=== PATIENT | female | born 1985 | race Caucasian/White ===

== ENCOUNTER 2020-05-24 05:25 | Inpatient (IN) | payer OTHER, BC ==
[2020-05-24] MEDS ORDERED: Nalbuphine 10 MG/1 ML Vial IVPUSH PRN (07:13)
[2020-05-24] MEDS ORDERED: Sodium Chloride 0.9% 10 ML Syringe FLUSH PRN (07:13)
[2020-05-24] MEDS ORDERED: Misoprostol 200 MCG Tab PO PRN (07:13)
[2020-05-24] MEDS ORDERED: Lidocaine 1% 50 ML MDV INJECT PRN (07:13)
[2020-05-24] MEDS ORDERED: Carboprost Tromethamine 250 MCG/1 ML Amp IM PRN (07:13)
[2020-05-24] MEDS ORDERED: Sodium Chloride 0.9% 2.5 ML Syringe FLUSH PRN (07:13)
[2020-05-24] MEDS ORDERED: Sodium Chloride 0.9% 10 ML SDV IV PRN (07:13)
[2020-05-24] MEDS ORDERED: Ondansetron 4 MG/2 ML SDV IVPUSH PRN (07:13)
[2020-05-24] MEDS ORDERED: Butorphanol 1 MG/ML SDV IVPUSH PRN (07:13)
[2020-05-24] MEDS ORDERED: Tranexamic Acid 1,000 MG in Sodium Chloride 0.9% 100 ML IV PRN ×2 (07:13→20:33)
[2020-05-24] MEDS ORDERED: Methylergonovine 0.2 MG/1 ML Amp IM PRN ×2 (07:13→20:33)
[2020-05-24] MEDS ORDERED: Water For Irrigation,Sterile 1,000 ML Container IRR PRN (07:13)
[2020-05-24] MEDS ORDERED: Oxytocin/0.9 % Sodium Chloride 30 UNIT/500 ML BAG IV SCH ×2 (07:15→15:00)
[2020-05-24] MEDS: Lactated Ringers 1,000 ML IV SCH ×3 (09:45→15:50)
[2020-05-24] MEDS ORDERED: fentaNYL 100 MCG/2 ML SDV ONE ×2 (10:39→17:41)
[2020-05-24] MEDS ORDERED: Ropivacaine HCl/PF 100 ML ONE ×2 (10:39→17:41)
--- NOTE | 2020-05-24 11:19 | PCM.PREANE ---
Preanesthetic Assessment - Procedure Proposed Procedure: labor epidural - Anesthesia/Transfusion/Family Hx Anesthesia History: No Prior Anesthesia Family History of Anesthesia Reaction: No Transfusion History: No Prior Transfusion(s) - Review of Systems General: No Symptoms Pulmonary: No Symptoms Cardiovascular: No Symptoms Gastrointestinal: No Symptoms Neurological: No Symptoms Other: Reports: None - Physical Assessment NPO Status Date: 05/24/20 NPO Status Time: 10:30 (water) Height: 5 ft 3 in Weight: 97.522 kg ASA Class: 2 Mental Status: Alert & Oriented x3 Airway Class: Mallampati = 2 Dentition: Reports: Normal Dentition Thyro-Mental Finger Breadths: 2 ROM/Head Extension: Full Lungs: Clear to Auscultation, Normal Respiratory Effort Cardiovascular: Regular Rate, Regular Rhythm - Lab Values: Laboratory Last Values WBC 11.00 K/uL (4.0-11.0) 05/24/20 08:07 RBC 3.95 M/uL (4.30-5.90) L 05/24/20 08:07 Hgb 12.7 g/dL (12.0-16.0) 05/24/20 08:07 Hct 38.1 % (36.0-46.0) 05/24/20 08:07 MCV 96.5 fL (80.0-98.0) 05/24/20 08:07 MCH 32.2 pg (27.0-32.0) H 05/24/20 08:07 MCHC 33.3 g/dL (31.0-37.0) 05/24/20 08:07 RDW Std Deviation 48.9 fl (28.0-62.0) 05/24/20 08:07 RDW Coeff of Silke 14 % (11.0-15.0) 05/24/20 08:07 Plt Count 144 K/uL (150-400) L 05/24/20 08:07 MPV 11.80 fL (7.40-12.00) 05/24/20 08:07 Nucleated RBC % 0.0 /100WBC 05/24/20 08:07 Nucleated RBCs # 0 K/uL 05/24/20 08:07 Membrane Rupture POSITIVE 05/24/20 05:44 COVID-19 (SIVA) NEGATIVE (NEGATIVE) 05/24/20 08:24 Blood Type O POSITIVE 05/24/20 08:07 Antibody Screen NEGATIVE 05/24/20 08:07 - Allergies Allergies/Adverse Reactions: Allergies Allergy/AdvReac Type Severity Reaction Status Date / Time No Known Allergies Allergy Verified 05/24/20 05:33 - Acknowledgements Anesthesia Type Planned: Epidural Pt an Appropriate Candidate for the Planned Anesthesia: Yes Alternatives and Risks of Anesthesia Discussed w Pt/Guardian: Yes Pt/Guardian Understands and Agrees with Anesthesia Plan: Yes PreAnesthesia Questionnaire - Past Health History Medical/Surgical History: Denies Medical/Surgical History Gastrointestinal History: Reports: GERD : 4 Para: 2 Other OB/BYN History: 39 6/7 weeks in active labor Endocrine/Metabolic History: Reports: Obesity/BMI 30+ - SUBSTANCE USE Smoking Status *Q: Former Smoker Tobacco Use Within Last Twelve Months: Cigarettes Second Hand Smoke Exposure: Yes Recreational Drug Use History: No - CURRENT (IN HOUSE) MEDS Current Meds: Current Medications Butorphanol Tartrate (Stadol) 1 mg IVPUSH Q1H PRN PRN Reason: Pain Carboprost Tromethamine (Hemabate Ds) 250 mcg IM ASDIRECTED PRN PRN Reason: Post Hemorrhage Lactated Ringer's (Ringers, Lactated) 1,000 mls @ 150 mls/hr IV ASDIRECTED [facility] Last Admin: 05/24/20 10:20 Dose: 999 mls/hr Documented by: Oxytocin/Sodium Chloride (Oxytocin 30 Unit/500 Ml-Ns) 30 unit in 500 mls @ 999 mls/hr IV TITRATE [facility] Tranexamic Acid 1,000 mg/ (Sodium Chloride) 110 mls @ 660 mls/hr IV ONETIME PRN PRN Reason: Bleeding Lidocaine HCl (Xylocaine 1%) 50 ml INJECT ONETIME PRN PRN Reason: Laceration repair Methylergonovine Maleate (Methergine) 0.2 mg IM ASDIRECTED PRN PRN Reason: Post Hemorrhage Misoprostol (Cytotec) 200 mcg PO ONETIME PRN PRN Reason: Post Hemorrhage Nalbuphine HCl (Nubain) 10 mg IVPUSH Q1H PRN PRN Reason: Pain (severe 7-10) Ondansetron HCl (Zofran) 4 mg IVPUSH Q4H PRN PRN Reason: Nausea/Vomiting Sodium Chloride (Saline Flush) 10 ml FLUSH ASDIRECTED PRN PRN Reason: Keep Vein Open Sodium Chloride (Saline Flush) 2.5 ml FLUSH ASDIRECTED PRN PRN Reason: Keep Vein Open Sodium Chloride (Normal Saline) 10 ml IV ASDIRECTED PRN PRN Reason: IV Use Sterile Water (Sterile Water For Irrigation) 1,000 ml IRR ASDIRECTED PRN PRN Reason: delivery Discontinued Medications Fentanyl (Sublimaze) Confirm Administered Dose 200 mcg .ROUTE .STNifti-MED ONE Stop: 05/24/20 10:40 Ropivacaine (Naropin 0.2%) Confirm Administered Dose 100 mls @ as directed .ROUTE .STNifti-MED ONE Stop: 05/24/20 10:40
[2020-05-24] MEDS ORDERED: Bupivacaine 0.25% 10 ML SDV ONE (17:37)
--- NOTE | 2020-05-24 18:02 | PCM.SN.2 ---
- Free Text/Narrative Note: Anesthesia time: 3467-6219 Paged to dose up epidural. T11 level at time of assessment (1730), with HOB 30 degrees. Negative to aspiration, and 7ml of 0.25% PF Marcaine bolus given. Instructed to have HOB 10 degrees with IHSAN for 15 min. Epidural bag empty, and changed. Settings adjusted for 8ml hourly rate, 5ml Q10 min POLISHER BRASS, 34ml hourly lockout. 1757- re-assessed and T8 level achieved. Patient reports satisfactory pain control. VSS.
[2020-05-24] MEDS ORDERED: Benzocaine/Menthol 20%-0.5% Spray 78 GM Cannister TOP PRN (20:33)
[2020-05-24] MEDS ORDERED: Witch Hazel Medicated Pads 40/Jar TOP PRN (20:33)
[2020-05-24] MEDS ORDERED: Lanolin 100% Cream 7 GM Tube TOP PRN (20:33)
[2020-05-24] MEDS ORDERED: Docusate Sodium 100 MG Cap PO PRN (20:33)
[2020-05-24] MEDS ORDERED: Ibuprofen 400 MG Tab PO PRN (20:33)
[2020-05-24] MEDS ORDERED: Acetaminophen 500 MG Tab PO PRN (20:33)
[2020-05-24] MEDS ORDERED: Bisacodyl 10 MG Supp RECTAL PRN (20:33)
--- NOTE | 2020-05-24 20:52 | PCM.DEL ---
L & D Note - General Info Date of Service: 05/24/20 Mother's Due Date: 05/25/20 - Delivery Note Labor: Spontaneous, Augmented by Oxytocin Delivery Outcome: Livebirth Infant Delivery Method: Spontaneous Vaginal Delivery-Single Infant Delivery Mode: Spontaneous Presentation: Left Occiput Anterior (TAMMY) Nuchal Cord: Present Anesthesia Type: Epidural Anesthetic: Lidocaine (Xylocaine) 1% Plain Local Anesthetic Volume: 5cc Amniotic Fluid Description: Meconium Stained Episiotomy Type: None Laceration: 2nd Degree Suture type: Vicryl Suture size: 2-0 Placenta: Intact, Spontaneous Cord: 3 Vessels Estimated Blood Loss: 200 Resuscitation Needed: No [place]: Suctioned Provider: Eduar Powell Score 1 min: 8 Score 5 min: 9 Second Stage Interventions: Reports: Encouragement Given, Pushing Effectively Delivery Comments (Free Text/Narrative):: of a female infant weighing 9 lbs 6 ounces (4260 g) to a 39w6d GBS negative O+ Rubella non immune 34 year old female. She presented with spontaneous rupture of membranes and contractions. She received routine care prior to labor. The patient had thin meconium staining. FHT remained in the 130s with contractions every 2-4 minutes. An epidural was placed for pain management. Pitocin was then initiated. FHT then showed variable decelerations with moderate variability, accelerations and no decelerations. Positioning and oxygen were then attempted; Pitocin was stopped and the patient had improvement of variables. Pitocin was then restarted at 1445. The patient then was complete at 1830 and began pushing at 1915. A life female was born at 1950 and was stimulated and placed on the patient's chest. - General Info Date of Service: 05/24/20 - Patient Data Weight - Most Recent: 215 lb I&O - Last 24 Hours: Intake & Output 05/24/20 05/24/20 05/24/20 06:59 14:59 22:59 Intake Total 1000 1000 Output Total 450 Balance 1000 550 Lab Results Last 24 Hours: Laboratory Results - last 24 hr 05/24/20 05/24/20 05/24/20 Range/Units 05:44 08:07 08:07 WBC 11.00 (4.0-11.0) K/uL RBC 3.95 L (4.30-5.90) M/uL Hgb 12.7 (12.0-16.0) g/dL Hct 38.1 (36.0-46.0) % MCV 96.5 (80.0-98.0) fL MCH 32.2 H (27.0-32.0) pg MCHC 33.3 (31.0-37.0) g/dL RDW Std Deviation 48.9 (28.0-62.0) fl RDW Coeff of Silke 14 (11.0-15.0) % Plt Count 144 L (150-400) K/uL MPV 11.80 (7.40-12.00) fL Nucleated RBC % 0.0 /100WBC Nucleated RBCs # 0 K/uL Cord ABG pH (7.18-7.38) Cord ABG Base Excess (-10--2) Cord VBG pH (7.25-7.45) Cord VBG Base Excess (-10--2) Membrane Rupture POSITIVE COVID-19 (SIVA) (NEGATIVE) Blood Type O POSITIVE Antibody Screen NEGATIVE 05/24/20 05/24/20 Range/Units 08:24 19:58 WBC (4.0-11.0) K/uL RBC (4.30-5.90) M/uL Hgb (12.0-16.0) g/dL Hct (36.0-46.0) % MCV (80.0-98.0) fL MCH (27.0-32.0) pg MCHC (31.0-37.0) g/dL RDW Std Deviation (28.0-62.0) fl RDW Coeff of Silke (11.0-15.0) % Plt Count (150-400) K/uL MPV (7.40-12.00) fL Nucleated RBC % /100WBC Nucleated RBCs # K/uL Cord ABG pH 7.142 L (7.18-7.38) Cord ABG Base Excess -10 (-10--2) Cord VBG pH 7.285 (7.25-7.45) Cord VBG Base Excess -7 (-10--2) Membrane Rupture COVID-19 (SIVA) NEGATIVE (NEGATIVE) Blood Type Antibody Screen Med Orders - Current: Current Medications Acetaminophen (Tylenol Extra Strength) 500 mg PO Q4H PRN PRN Reason: Pain Acetaminophen (Tylenol Extra Strength) 1,000 mg PO Q4H PRN PRN Reason: Pain Benzocaine/Menthol (Dermoplast Pain Relief 20%-0.5% [place]) 78 gm TOP ASDIRECTED PRN PRN Reason: Perineal Comfort Measure Bisacodyl (Dulcolax) 10 mg RECTAL ONETIME PRN PRN Reason: Constipation Docusate Sodium (Colace) 100 mg PO BID PRN PRN Reason: Constipation Emollient Ointment (Lansinoh Hpa) 0 gm TOP ASDIRECTED PRN PRN Reason: Sore Nipples Tranexamic Acid 1,000 mg/ (Sodium Chloride) 110 mls @ 660 mls/hr IV ONETIME PRN PRN Reason: Bleeding Ibuprofen (Motrin) 400 mg PO Q4H PRN PRN Reason: Pain Ibuprofen (Motrin) 800 mg PO Q6H PRN PRN Reason: Pain Methylergonovine Maleate (Methergine) 0.2 mg IM ONETIME PRN PRN Reason: Excessive Vaginal Bleeding Witch Josseline (Tucks) 1 pad TOP ASDIRECTED PRN PRN Reason: comfort care Discontinued Medications Bupivacaine HCl (Sensorcaine-Mpf 0.25%) Confirm Administered Dose 10 ml .ROUTE .STK-MED ONE Stop: 05/24/20 17:38 Butorphanol Tartrate (Stadol) 1 mg IVPUSH Q1H PRN PRN Reason: Pain Carboprost Tromethamine (Hemabate Ds) 250 mcg IM ASDIRECTED PRN PRN Reason: Post Hemorrhage Fentanyl (Sublimaze) Confirm Administered Dose 200 mcg .ROUTE .STK-MED ONE Stop: 05/24/20 10:40 Fentanyl (Sublimaze) Confirm Administered Dose 200 mcg .ROUTE .STK-MED ONE Stop: 05/24/20 17:42 Lactated Ringer's (Ringers, Lactated) 1,000 mls @ 150 mls/hr IV ASDIRECTED [facility] Last Admin: 05/24/20 15:50 Dose: 999 mls/hr Documented by: Oxytocin/Sodium Chloride (Oxytocin 30 Unit/500 Ml-Ns) 30 unit in 500 mls @ 999 mls/hr IV TITRATE [facility] Tranexamic Acid 1,000 mg/ (Sodium Chloride) 110 mls @ 660 mls/hr IV ONETIME PRN PRN Reason: Bleeding Ropivacaine (Naropin 0.2%) Confirm Administered Dose 100 mls @ as directed .ROUTE .STK-MED ONE Stop: 05/24/20 10:40 Oxytocin/Sodium Chloride (Oxytocin 30 Unit/500 Ml-Ns) 30 unit in 500 mls @ 2 mls/hr IV TITRATE [facility]; Protocol Last Infusion: 05/24/20 17:58 Dose: 2 munits/min, 2 mls/hr Documented by: Ropivacaine (Naropin 0.2%) Confirm Administered Dose 100 mls @ as directed .ROUTE .[email or web address] ONE Stop: 05/24/20 17:42 Lidocaine HCl (Xylocaine 1%) 50 ml INJECT ONETIME PRN PRN Reason: Laceration repair Methylergonovine Maleate (Methergine) 0.2 mg IM ASDIRECTED PRN PRN Reason: Post Hemorrhage Misoprostol (Cytotec) 200 mcg PO ONETIME PRN PRN Reason: Post Hemorrhage Nalbuphine HCl (Nubain) 10 mg IVPUSH Q1H PRN PRN Reason: Pain (severe 7-10) Ondansetron HCl (Zofran) 4 mg IVPUSH Q4H PRN PRN Reason: Nausea/Vomiting Sodium Chloride (Saline Flush) 10 ml FLUSH ASDIRECTED PRN PRN Reason: Keep Vein Open Sodium Chloride (Saline Flush) 2.5 ml FLUSH ASDIRECTED PRN PRN Reason: Keep Vein Open Sodium Chloride (Normal Saline) 10 ml IV ASDIRECTED PRN PRN Reason: IV Use Sterile Water (Sterile Water For Irrigation) 1,000 ml IRR ASDIRECTED PRN PRN Reason: delivery - Problem List & Annotations (1) Normal vaginal delivery SNOMED Code(s): 57796192, 220193174 Code(s): O80 - ENCOUNTER FOR FULL-TERM UNCOMPLICATED DELIVERY Status: Acute Current Visit: Yes - Problem List Review Problem List Initiated/Reviewed/Updated: Yes - Assessment Assessment:: of a female infant weighing 4260g (9 lbs 6 ounces) to a 34 year old female at 39w6d with SROM on 05/24/20. APGARs 8/9 - Plan Plan:: 1. GBS negative 2. Rubella non immune - will need immunization prior to discharge 3. O+ - no Rhogam indicated 4. 5. Care per unit routine
--- NOTE | 2020-05-24 21:32 | OR ---
SURGEON: Latosha Kent M.D. DATE OF PROCEDURE: 05/24/2020 PREOPERATIVE DIAGNOSES: A 39-week intrauterine , spontaneous rupture of membranes, prelabor, but with spontaneous labor. POSTOPERATIVE DIAGNOSES: A 39-week intrauterine , spontaneous rupture of membranes, prelabor, but with spontaneous labor. PROCEDURES: Pitocin augmentation of labor, term spontaneous vaginal delivery, repair of second-degree laceration. PRIMARY SURGEON: Latosha Kent MD ANESTHESIA: Epidural and local. ESTIMATED BLOOD LOSS: Less than 300 mL. FINDINGS: Liveborn female, score of 8 and 9, weighing 4260 g. Placenta spontaneous, Schultze intact, with 3 vessels. Second-degree perineal laceration, repaired. COMPLICATIONS: None known. DISPOSITION: Mother and baby in LDR in good condition. BRIEF HISTORY: This is a 34-year-old female. She is G4, P3. She presents at 39 weeks' gestation. Spontaneous rupture of membranes at approximately 2 a.m. She is group B strep negative. She remained afebrile throughout her hospital course. She had primarily category 1 heart tones with episodes of category 2 heart tones. When she progressed to 4 to 5 cm, she had slow progress, and Pitocin augmentation was performed. Intermittently, the Pitocin was discontinued when there were variable decelerations and then restarted. With this, she did progress to complete. DESCRIPTION OF PROCEDURE: With the patient in dorsal lithotomy position, the patient pushed over a 1-hour time period to a 5+ station at which time the head was delivered spontaneously and atraumatically over the perineum with support with subsequent delivery of the 's shoulders and body without any difficulty. The was bulb suctioned by nose and mouth and after the cord had ceased to pulsate it was doubly clamped and cut. The infant was handed to the mother in the presence of the nurse attending delivery. The infant was a liveborn female, score of 8 and 9, weighing 4260 g. Cord blood was collected for cord ABGs as well as routine cord blood sampling. Pitocin was initiated after delivery of the to assist with delivery of the placenta, which was delivered spontaneously, Schultze intact, with 3 vessels. Upon inspection of the pelvis and perineum, there were no periurethral, vaginal sidewall, cervical, or rectal lacerations. There was a small second-degree perineal laceration. A total of 10 mL of 1% lidocaine was utilized for local analgesia. 3-0 Vicryl was used in a running lock manner to reapproximate the vaginal mucosa, deep running suture of the same for the deep perineal tissue, and a subcuticular suture of the same for the skin. Final sponge, needle, and instrument counts were correct. There were no known complications. Mother and baby remained in LDR in good condition. MEGAN / EUSEBIO /[id number]
[2020-05-24] MEDS: Ibuprofen 800 MG Tab PO PRN (21:40)
[2020-05-25] MEDS: Acetaminophen 500 MG Tab PO PRN ×2 (04:01→10:39)
--- NOTE | 2020-05-25 07:32 | PCM.PNPP ---
<Vicky Rucker - Last Filed: 05/25/20 10:27> - General Info Date of Service: 05/25/20 Subjective Update: Patient is doing well. She had some increased bleeding overnight but this improved with injection of . Admit hemoglobin was 12.7. Post hemoglobin is 9.9. Patient reports she is doing well, although she does have some back pain. She has been ambulating, urinating and eating food, although she does report a decreased appetite. She has not yet defecated. She is and reports this is going well. Functional Status: Reports: Pain Controlled, Tolerating Diet, Ambulating, Urinating - Review of Systems General: Reports: No Symptoms HEENT: Reports: No Symptoms Pulmonary: Reports: No Symptoms Cardiovascular: Reports: No Symptoms Gastrointestinal: Reports: Abdominal Pain Genitourinary: Reports: No Symptoms Musculoskeletal: Reports: Back Pain Skin: Reports: No Symptoms Neurological: Reports: No Symptoms Psychiatric: Reports: No Symptoms - General Info Date of Service: 05/25/20 - Patient Data Vital Signs - Most Recent: Last Vital Signs Temp 98.1 F 05/25/20 04:05 Pulse 123 H 05/25/20 04:05 Resp 16 05/25/20 04:05 BP 117/55 L 05/25/20 04:05 Pulse Ox 94 L 05/25/20 04:05 Weight - Most Recent: 97.522 kg I&O - Last 24 Hours: Intake & Output 05/24/20 05/25/20 05/25/20 22:59 06:59 14:59 Intake Total 1000 Output Total 450 Balance 550 Lab Results - Last 24 Hours: Laboratory Results - last 24 hr 05/24/20 05/24/20 05/24/20 Range/Units 08:07 08:07 08:24 WBC 11.00 (4.0-11.0) K/uL RBC 3.95 L (4.30-5.90) M/uL Hgb 12.7 (12.0-16.0) g/dL Hct 38.1 (36.0-46.0) % MCV 96.5 (80.0-98.0) fL MCH 32.2 H (27.0-32.0) pg MCHC 33.3 (31.0-37.0) g/dL RDW Std Deviation 48.9 (28.0-62.0) fl RDW Coeff of Silke 14 (11.0-15.0) % Plt Count 144 L (150-400) K/uL MPV 11.80 (7.40-12.00) fL Nucleated RBC % 0.0 /100WBC Nucleated RBCs # 0 K/uL Cord ABG pH (7.18-7.38) Cord ABG Base Excess (-10--2) Cord VBG pH (7.25-7.45) Cord VBG Base Excess (-10--2) COVID-19 (SIVA) NEGATIVE (NEGATIVE) Blood Type O POSITIVE Antibody Screen NEGATIVE 05/24/20 05/25/20 Range/Units 19:58 06:10 WBC (4.0-11.0) K/uL RBC (4.30-5.90) M/uL Hgb 9.9 L (12.0-16.0) g/dL Hct 30.0 L (36.0-46.0) % MCV (80.0-98.0) fL MCH (27.0-32.0) pg MCHC (31.0-37.0) g/dL RDW Std Deviation (28.0-62.0) fl RDW Coeff of Silke (11.0-15.0) % Plt Count (150-400) K/uL MPV (7.40-12.00) fL Nucleated RBC % /100WBC Nucleated RBCs # K/uL Cord ABG pH 7.142 L (7.18-7.38) Cord ABG Base Excess -10 (-10--2) Cord VBG pH 7.285 (7.25-7.45) Cord VBG Base Excess -7 (-10--2) COVID-19 (SIVA) (NEGATIVE) Blood Type Antibody Screen Med Orders - Current: Current Medications Acetaminophen (Tylenol Extra Strength) 500 mg PO Q4H PRN PRN Reason: Pain Acetaminophen (Tylenol Extra Strength) 1,000 mg PO Q4H PRN PRN Reason: Pain Last Admin: 05/25/20 04:01 Dose: 1,000 mg Documented by: Benzocaine/Menthol (Dermoplast Pain Relief 20%-0.5% [place]) 78 gm TOP ASDIRECTED PRN PRN Reason: Perineal Comfort Measure Last Admin: 05/24/20 21:41 Dose: 1 can Documented by: Bisacodyl (Dulcolax) 10 mg RECTAL ONETIME PRN PRN Reason: Constipation Docusate Sodium (Colace) 100 mg PO BID PRN PRN Reason: Constipation Emollient Ointment (Lansinoh Hpa) 0 gm TOP ASDIRECTED PRN PRN Reason: Sore Nipples Tranexamic Acid 1,000 mg/ (Sodium Chloride) 110 mls @ 660 mls/hr IV ONETIME PRN PRN Reason: Bleeding Ibuprofen (Motrin) 400 mg PO Q4H PRN PRN Reason: Pain Ibuprofen (Motrin) 800 mg PO Q6H PRN PRN Reason: Pain Last Admin: 05/24/20 21:40 Dose: 800 mg Documented by: Methylergonovine Maleate (Methergine) 0.2 mg IM ONETIME PRN PRN Reason: Excessive Vaginal Bleeding Last Admin: 05/25/20 04:02 Dose: 0.2 mg Documented by: Naomie Maddox) 1 pad TOP ASDIRECTED PRN PRN Reason: comfort care Last Admin: 05/24/20 21:41 Dose: 1 tub Documented by: Discontinued Medications Bupivacaine HCl (Sensorcaine-Mpf 0.25%) Confirm Administered Dose 10 ml .ROUTE .STK-MED ONE Stop: 05/24/20 17:38 Last Admin: 05/24/20 22:41 Dose: Not Given Documented by: Butorphanol Tartrate (Stadol) 1 mg IVPUSH Q1H PRN PRN Reason: Pain Carboprost Tromethamine (Hemabate Ds) 250 mcg IM ASDIRECTED PRN PRN Reason: Post Hemorrhage Fentanyl (Sublimaze) Confirm Administered Dose 200 mcg .ROUTE .STK-MED ONE Stop: 05/24/20 10:40 Last Admin: 05/24/20 22:41 Dose: Not Given Documented by: Fentanyl (Sublimaze) Confirm Administered Dose 200 mcg .ROUTE .STK-MED ONE Stop: 05/24/20 17:42 Last Admin: 05/24/20 22:42 Dose: Not Given Documented by: Lactated Ringer's (Ringers, Lactated) 1,000 mls @ 150 mls/hr IV ASDIRECTED RAYNA Last Admin: 05/24/20 15:50 Dose: 999 mls/hr Documented by: Oxytocin/Sodium Chloride (Oxytocin 30 Unit/500 Ml-Ns) 30 unit in 500 mls @ 999 mls/hr IV TITRATE RAYNA Tranexamic Acid 1,000 mg/ (Sodium Chloride) 110 mls @ 660 mls/hr IV ONETIME PRN PRN Reason: Bleeding Ropivacaine (Naropin 0.2%) Confirm Administered Dose 100 mls @ as directed .ROUTE .[employer] ONE Stop: 05/24/20 10:40 Last Admin: 05/25/20 00:12 Dose: Not Given Documented by: Oxytocin/Sodium Chloride (Oxytocin 30 Unit/500 Ml-Ns) 30 unit in 500 mls @ 2 mls/hr IV TITRATE RAYNA; Protocol Last Infusion: 05/24/20 17:58 Dose: 2 munits/min, 2 mls/hr Documented by: Ropivacaine (Naropin 0.2%) Confirm Administered Dose 100 mls @ as directed .ROUTE .[employer] ONE Stop: 05/24/20 17:42 Last Admin: 05/25/20 00:13 Dose: Not Given Documented by: Lidocaine HCl (Xylocaine 1%) 50 ml INJECT ONETIME PRN PRN Reason: Laceration repair Methylergonovine Maleate (Methergine) 0.2 mg IM ASDIRECTED PRN PRN Reason: Post Hemorrhage Misoprostol (Cytotec) 200 mcg PO ONETIME PRN PRN Reason: Post Hemorrhage Nalbuphine HCl (Nubain) 10 mg IVPUSH Q1H PRN PRN Reason: Pain (severe 7-10) Ondansetron HCl (Zofran) 4 mg IVPUSH Q4H PRN PRN Reason: Nausea/Vomiting Sodium Chloride (Saline Flush) 10 ml FLUSH ASDIRECTED PRN PRN Reason: Keep Vein Open Sodium Chloride (Saline Flush) 2.5 ml FLUSH ASDIRECTED PRN PRN Reason: Keep Vein Open Sodium Chloride (Normal Saline) 10 ml IV ASDIRECTED PRN PRN Reason: IV Use Sterile Water (Sterile Water For Irrigation) 1,000 ml IRR ASDIRECTED PRN PRN Reason: delivery - Interaction Infant Disposition, : to Nursery Interaction: To Nursery to Visit Feeding: Attempted ; Nursed Fair/Poor Support Person: - Recovery Exam Fundal Tone: Firm Fundal Level: At Umbilicus Fundal Placement: Midline Lochia Amount: Scant, Small Lochia Color: Rubra/Red Bladder Status: Voiding Urinary Elimination: Voided - Exam General: Alert, Oriented HEENT: Pupils Equal, Pupils Reactive, EOMI Neck: Supple Lungs: Clear to Auscultation, Normal Respiratory Effort Cardiovascular: Regular Rate, Regular Rhythm GI/Abdominal Exam: Normal Bowel Sounds, Soft, Non-Tender, No Organomegaly Extremities: Normal Inspection, Non-Tender, Normal Capillary Refill, Pedal Edema (Trace) Skin: Warm, Dry, Intact Neurological: No New Focal Deficit Psy/Mental Status: Alert, Normal Affect, Normal Mood - Problem List & Annotations (1) Normal vaginal delivery SNOMED Code(s): 40207754, 570338912 Code(s): O80 - ENCOUNTER FOR FULL-TERM UNCOMPLICATED DELIVERY Status: Acute Current Visit: Yes - Problem List Review Problem List Initiated/Reviewed/Updated: Yes - Assessment Assessment:: day 1 of a female weighing 4260g (9 lbs 6 ounces) to a 34 year old female at 39w6d with SROM on 05/24/20. APGARs 8/9 - Plan Plan:: 1. GBS negative 2. Rubella non immune - will need immunization prior to discharge 3. O+ - no Rhogam indicated 4. - going well, occasionally bottle feeding 5. Care per unit routine 6. Discharge home at 24 hours, follow up in clinic with Marie Kline in 6 weeks <Latosha Kent - Last Filed: 05/25/20 13:15> - General Info Subjective Update: clarification patient was given a single dose of methergine due to increased bleeding several hours . Functional Status: Reports: Pain Controlled, Tolerating Diet, Ambulating, Urinating - Review of Systems General: Reports: No Symptoms HEENT: Reports: No Symptoms Pulmonary: Reports: No Symptoms Cardiovascular: Reports: No Symptoms Gastrointestinal: Reports: No Symptoms Neurological: Reports: No Symptoms Psychiatric: Reports: No Symptoms - Patient Data Vital Signs - Most Recent: Last Vital Signs Temp 36.3 C 05/25/20 08:00 Pulse 96 05/25/20 08:00 Resp 14 05/25/20 08:00 BP 123/68 05/25/20 08:00 Pulse Ox 97 05/25/20 08:00 I&O - Last 24 Hours: Intake & Output 05/24/20 05/25/20 05/25/20 22:59 06:59 14:59 Intake Total 1000 Output Total 450 Balance 550 Lab Results - Last 24 Hours: Laboratory Results - last 24 hr 05/24/20 05/25/20 Range/Units 19:58 06:10 Hgb 9.9 L (12.0-16.0) g/dL Hct 30.0 L (36.0-46.0) % Cord ABG pH 7.142 L (7.18-7.38) Cord ABG Base Excess -10 (-10--2) Cord VBG pH 7.285 (7.25-7.45) Cord VBG Base Excess -7 (-10--2) Med Orders - Current: Current Medications Acetaminophen (Tylenol Extra Strength) 500 mg PO Q4H PRN PRN Reason: Pain Acetaminophen (Tylenol Extra Strength) 1,000 mg PO Q4H PRN PRN Reason: Pain Last Admin: 05/25/20 10:39 Dose: 1,000 mg Documented by: Benzocaine/Menthol (Dermoplast Pain Relief 20%-0.5% [place]) 78 gm TOP ASDIRECTED PRN PRN Reason: Perineal Comfort Measure Last Admin: 05/24/20 21:41 Dose: 1 can Documented by: Bisacodyl (Dulcolax) 10 mg RECTAL ONETIME PRN PRN Reason: Constipation Docusate Sodium (Colace) 100 mg PO BID PRN PRN Reason: Constipation Emollient Ointment (Lansinoh Hpa) 0 gm TOP ASDIRECTED PRN PRN Reason: Sore Nipples Tranexamic Acid 1,000 mg/ (Sodium Chloride) 110 mls @ 660 mls/hr IV ONETIME PRN PRN Reason: Bleeding Ibuprofen (Motrin) 400 mg PO Q4H PRN PRN Reason: Pain Ibuprofen (Motrin) 800 mg PO Q6H PRN PRN Reason: Pain Last Admin: 05/25/20 11:55 Dose: 800 mg Documented by: Methylergonovine Maleate (Methergine) 0.2 mg IM ONETIME PRN PRN Reason: Excessive Vaginal Bleeding Last Admin: 05/25/20 04:02 Dose: 0.2 mg Documented by: Naomie Manjarrez ([facility]) 1 pad TOP ASDIRECTED PRN PRN Reason: comfort care Last Admin: 05/24/20 21:41 Dose: 1 tub Documented by: Discontinued Medications Bupivacaine HCl (Sensorcaine-Mpf 0.25%) Confirm Administered Dose 10 ml .ROUTE .STK-MED ONE Stop: 05/24/20 17:38 Last Admin: 05/24/20 22:41 Dose: Not Given Documented by: Butorphanol Tartrate (Stadol) 1 mg IVPUSH Q1H PRN PRN Reason: Pain Carboprost Tromethamine (Hemabate Ds) 250 mcg IM ASDIRECTED PRN PRN Reason: Post Hemorrhage Fentanyl (Sublimaze) Confirm Administered Dose 200 mcg .ROUTE .STK-MED ONE Stop: 05/24/20 10:40 Last Admin: 05/24/20 22:41 Dose: Not Given Documented by: Fentanyl (Sublimaze) Confirm Administered Dose 200 mcg .ROUTE .STK-MED ONE Stop: 05/24/20 17:42 Last Admin: 05/24/20 22:42 Dose: Not Given Documented by: Lactated Ringer's (Ringers, Lactated) 1,000 mls @ 150 mls/hr IV ASDIRECTED RAYNA Last Admin: 05/24/20 15:50 Dose: 999 mls/hr Documented by: Oxytocin/Sodium Chloride (Oxytocin 30 Unit/500 Ml-Ns) 30 unit in 500 mls @ 999 mls/hr IV TITRATE RAYNA Tranexamic Acid 1,000 mg/ (Sodium Chloride) 110 mls @ 660 mls/hr IV ONETIME PRN PRN Reason: Bleeding Ropivacaine (Naropin 0.2%) Confirm Administered Dose 100 mls @ as directed .ROUTE .STK-MED ONE Stop: 05/24/20 10:40 Last Admin: 05/25/20 00:12 Dose: Not Given Documented by: Oxytocin/Sodium Chloride (Oxytocin 30 Unit/500 Ml-Ns) 30 unit in 500 mls @ 2 mls/hr IV TITRATE RAYNA; Protocol Last Infusion: 05/24/20 17:58 Dose: 2 munits/min, 2 mls/hr Documented by: Ropivacaine (Naropin 0.2%) Confirm Administered Dose 100 mls @ as directed .ROUTE .K-MED ONE Stop: 05/24/20 17:42 Last Admin: 05/25/20 00:13 Dose: Not Given Documented by: Lidocaine HCl (Xylocaine 1%) 50 ml INJECT ONETIME PRN PRN Reason: Laceration repair Methylergonovine Maleate (Methergine) 0.2 mg IM ASDIRECTED PRN PRN Reason: Post Hemorrhage Misoprostol (Cytotec) 200 mcg PO ONETIME PRN PRN Reason: Post Hemorrhage Nalbuphine HCl (Nubain) 10 mg IVPUSH Q1H PRN PRN Reason: Pain (severe 7-10) Ondansetron HCl (Zofran) 4 mg IVPUSH Q4H PRN PRN Reason: Nausea/Vomiting Sodium Chloride (Saline Flush) 10 ml FLUSH ASDIRECTED PRN PRN Reason: Keep Vein Open Sodium Chloride (Saline Flush) 2.5 ml FLUSH ASDIRECTED PRN PRN Reason: Keep Vein Open Sodium Chloride (Normal Saline) 10 ml IV ASDIRECTED PRN PRN Reason: IV Use Sterile Water (Sterile Water For Irrigation) 1,000 ml IRR ASDIRECTED PRN PRN Reason: delivery - Problem List & Annotations (1) Normal vaginal delivery SNOMED Code(s): 69479638, 882033057 Code(s): O80 - ENCOUNTER FOR FULL-TERM UNCOMPLICATED DELIVERY Status: Acute Current Visit: Yes - Problem List Review Problem List Initiated/Reviewed/Updated: Yes - My Orders Last 24 Hours: My Active Orders 05/24/20 Dinner Regular Diet [DIET] 05/24/20 20:33 Patient Status [ADT] Routine May Shower [RC] ASDIRECTED Up ad Jaye [RC] ASDIRECTED Vital Signs [RC] PER UNIT ROUTINE Acetaminophen [Tylenol Extra Strength] 1,000 mg PO Q4H PRN Acetaminophen [Tylenol Extra Strength] 500 mg PO Q4H PRN Benzocaine/Menthol [Dermoplast Pain Relief 20%-0.5% [place]] 78 gm TOP ASDIRECTE D PRN Docusate Sodium [Colace] 100 mg PO BID PRN Ibuprofen [Motrin] 400 mg PO Q4H PRN Ibuprofen [Motrin] 800 mg PO Q6H PRN Lanolin [Lansinoh HPA] See Dose Instructions TOP ASDIRECTED PRN Methylergonovine [Methergine] 0.2 mg IM ONETIME PRN Tranexamic Acid [Cyklokapron] 1,000 mg Sodium Chloride 0.9% [Normal Saline] 100 ml IV ONETIME bisacodyL [Dulcolax] 10 mg RECTAL ONETIME PRN witch Devyn [Tucks] 1 pad TOP ASDIRECTED PRN Assess Lochia [WOMSER] Per Unit Routine Assess Uterine Involution [WOMSER] Per Unit Routine Perineal Care [OM.PC] Per Unit Routine Peripheral IV Discontinue [OM.PC] Routine Resuscitation Status Routine 05/25/20 09:26 Ready for Discharge [RC] PER UNIT ROUTINE - Plan Plan:: Patient was seen and examined by me and I agree with above.
--- NOTE | 2020-05-25 10:17 | PCM48HPAN ---
Post Anesthesia Note - EVALUATION WITHIN 48HRS OF ANESTHETIC Vital Signs in Normal Range: Yes Patient Participated in Evaluation: Yes Respiratory Function Stable: Yes Airway Patent: Yes Cardiovascular Function Stable: Yes Hydration Status Stable: Yes Pain Control Satisfactory: Yes (Pain 2/10 at rest, max. 4/10 with feeding/walking.) Nausea and Vomiting Control Satisfactory: Yes (Taking PO well.) Mental Status Recovered: Yes Vital Signs: Last Vital Signs Temp 36.3 C 05/25/20 08:00 Pulse 96 05/25/20 08:00 Resp 14 05/25/20 08:00 BP 123/68 05/25/20 08:00 Pulse Ox 97 05/25/20 08:00 - COMMENTS/OBSERVATIONS Free Text/Narrative:: Reports ambulating without difficulty, with full return of strength and sensation to BLE.
[2020-05-25] MEDS: Ibuprofen 800 MG Tab PO PRN ×2 (11:55→20:25)
[2020-05-25] MEDS ORDERED: Measles, Mumps & Rubella Vaccine 0.5 ML SDV SUBCUT ONE (13:15)
[2020-05-26] MEDS: Ibuprofen 800 MG Tab PO PRN (08:22)
--- NOTE | 2020-05-26 09:51 | PCM.PNPP ---
- General Info Date of Service: 05/26/20 Admission Dx/Problem (Free Text): day 2 of a female infant weighing 4260g (9 lbs 6 ounces) to a 34 year old female at 39w6d with SROM on 05/24/20. Subjective Update: Patient is doing well. She reports that she had the passage of a clot while taking a shower today but has had no had increased bleeding otherwise. The plan was initially to discharge home yesterday, however the paraprofessional aide teacher recommended that the stay one more day due to bilirubin levels. Functional Status: Reports: Pain Controlled, Tolerating Diet, Ambulating, Urinating - Review of Systems General: Reports: No Symptoms HEENT: Reports: No Symptoms Pulmonary: Reports: No Symptoms Cardiovascular: Reports: No Symptoms Gastrointestinal: Reports: No Symptoms Genitourinary: Reports: No Symptoms Musculoskeletal: Reports: No Symptoms Skin: Reports: No Symptoms Neurological: Reports: No Symptoms Psychiatric: Reports: No Symptoms - General Info Date of Service: 05/26/20 - Patient Data Vital Signs - Most Recent: Last Vital Signs Temp 97.9 F 05/26/20 07:00 Pulse 77 05/26/20 07:00 Resp 18 05/26/20 07:00 BP 113/70 05/26/20 07:00 Pulse Ox 97 05/26/20 07:00 Weight - Most Recent: 215 lb Med Orders - Current: Current Medications Acetaminophen (Tylenol Extra Strength) 500 mg PO Q4H PRN PRN Reason: Pain Acetaminophen (Tylenol Extra Strength) 1,000 mg PO Q4H PRN PRN Reason: Pain Last Admin: 05/25/20 10:39 Dose: 1,000 mg Documented by: Benzocaine/Menthol (Dermoplast Pain Relief 20%-0.5% [place]) 78 gm TOP ASDIRECTED PRN PRN Reason: Perineal Comfort Measure Last Admin: 05/24/20 21:41 Dose: 1 can Documented by: Bisacodyl (Dulcolax) 10 mg RECTAL ONETIME PRN PRN Reason: Constipation Docusate Sodium (Colace) 100 mg PO BID PRN PRN Reason: Constipation Emollient Ointment (Lansinoh Hpa) 0 gm TOP ASDIRECTED PRN PRN Reason: Sore Nipples Last Admin: 05/25/20 17:40 Dose: 7 gm Documented by: Tranexamic Acid 1,000 mg/ (Sodium Chloride) 110 mls @ 660 mls/hr IV ONETIME PRN PRN Reason: Bleeding Ibuprofen (Motrin) 400 mg PO Q4H PRN PRN Reason: Pain Ibuprofen (Motrin) 800 mg PO Q6H PRN PRN Reason: Pain Last Admin: 05/26/20 08:22 Dose: 800 mg Documented by: Methylergonovine Maleate (Methergine) 0.2 mg IM ONETIME PRN PRN Reason: Excessive Vaginal Bleeding Last Admin: 05/25/20 04:02 Dose: 0.2 mg Documented by: Naomie Manjarrez ([facility]) 1 pad TOP ASDIRECTED PRN PRN Reason: comfort care Last Admin: 05/24/20 21:41 Dose: 1 tub Documented by: Discontinued Medications Bupivacaine HCl (Sensorcaine-Mpf 0.25%) Confirm Administered Dose 10 ml .ROUTE .STK-MED ONE Stop: 05/24/20 17:38 Last Admin: 05/24/20 22:41 Dose: Not Given Documented by: Butorphanol Tartrate (Stadol) 1 mg IVPUSH Q1H PRN PRN Reason: Pain Carboprost Tromethamine (Hemabate Ds) 250 mcg IM ASDIRECTED PRN PRN Reason: Post Hemorrhage Fentanyl (Sublimaze) Confirm Administered Dose 200 mcg .ROUTE .STK-MED ONE Stop: 05/24/20 10:40 Last Admin: 05/24/20 22:41 Dose: Not Given Documented by: Fentanyl (Sublimaze) Confirm Administered Dose 200 mcg .ROUTE .STK-MED ONE Stop: 05/24/20 17:42 Last Admin: 05/24/20 22:42 Dose: Not Given Documented by: Lactated Ringer's (Ringers, Lactated) 1,000 mls @ 150 mls/hr IV ASDIRECTED RAYNA Last Admin: 05/24/20 15:50 Dose: 999 mls/hr Documented by: Oxytocin/Sodium Chloride (Oxytocin 30 Unit/500 Ml-Ns) 30 unit in 500 mls @ 999 mls/hr IV TITRATE RAYNA Tranexamic Acid 1,000 mg/ (Sodium Chloride) 110 mls @ 660 mls/hr IV ONETIME PRN PRN Reason: Bleeding Ropivacaine (Naropin 0.2%) Confirm Administered Dose 100 mls @ as directed .ROUTE .STK-MED ONE Stop: 05/24/20 10:40 Last Admin: 05/25/20 00:12 Dose: Not Given Documented by: Oxytocin/Sodium Chloride (Oxytocin 30 Unit/500 Ml-Ns) 30 unit in 500 mls @ 2 mls/hr IV TITRATE RAYNA; Protocol Last Infusion: 05/24/20 17:58 Dose: 2 munits/min, 2 mls/hr Documented by: Ropivacaine (Naropin 0.2%) Confirm Administered Dose 100 mls @ as directed .ROUTE .STK-MED ONE Stop: 05/24/20 17:42 Last Admin: 05/25/20 00:13 Dose: Not Given Documented by: Lidocaine HCl (Xylocaine 1%) 50 ml INJECT ONETIME PRN PRN Reason: Laceration repair Measles/Mumps/Rubella Vaccine Live (M-M-R Ii Vaccine) 0.5 ml SUBCUT .ONCE ONE Stop: 05/25/20 13:16 Methylergonovine Maleate (Methergine) 0.2 mg IM ASDIRECTED PRN PRN Reason: Post Hemorrhage Misoprostol (Cytotec) 200 mcg PO ONETIME PRN PRN Reason: Post Hemorrhage Nalbuphine HCl (Nubain) 10 mg IVPUSH Q1H PRN PRN Reason: Pain (severe 7-10) Ondansetron HCl (Zofran) 4 mg IVPUSH Q4H PRN PRN Reason: Nausea/Vomiting Sodium Chloride (Saline Flush) 10 ml FLUSH ASDIRECTED PRN PRN Reason: Keep Vein Open Sodium Chloride (Saline Flush) 2.5 ml FLUSH ASDIRECTED PRN PRN Reason: Keep Vein Open Sodium Chloride (Normal Saline) 10 ml IV ASDIRECTED PRN PRN Reason: IV Use Sterile Water (Sterile Water For Irrigation) 1,000 ml IRR ASDIRECTED PRN PRN Reason: delivery - Interaction Disposition, : at Bedside Interaction: Holding Infant Feeding: Attempted ; Nursed Fair/Poor Support Person: - Recovery Exam Fundal Tone: Firm Fundal Level: 1 Fingerbreadths Below Umbilicus Fundal Placement: Midline Lochia Amount: Scant Lochia Color: Rubra/Red Perineum Description: Intact, Minimal Bruising/Swelling Episiotomy/Laceration: Approximated Bladder Status: Voiding Urinary Elimination: Voided - Exam General: Alert, Oriented HEENT: Pupils Equal, Pupils Reactive, EOMI Neck: Supple Lungs: Clear to Auscultation, Normal Respiratory Effort Cardiovascular: Regular Rate, Regular Rhythm GI/Abdominal Exam: Normal Bowel Sounds, No Organomegaly, No Distention, No Mass Extremities: Normal Inspection Skin: Warm, Dry, Intact Neurological: No New Focal Deficit Psy/Mental Status: Alert, Normal Affect, Normal Mood - Problem List & Annotations (1) Normal vaginal delivery SNOMED Code(s): 65624227, [id number] Code(s): O80 - ENCOUNTER FOR FULL-TERM UNCOMPLICATED DELIVERY Status: Acute Current Visit: Yes - Problem List Review Problem List Initiated/Reviewed/Updated: Yes - Assessment Assessment:: day 2 of a female infant weighing 4260g (9 lbs 6 ounces) to a 34 year old female at 39w6d with SROM on 05/24/20. APGARs 8/9 - Plan Plan:: 1. GBS negative 2. Rubella non immune - will need immunization prior to discharge 3. O+ - no Rhogam indicated 4. - going well, occasionally bottle feeding 5. Care per unit routine 6. Discharge home today, follow up in clinic with Marie Kline in 6 weeks
== END 2020-05-26 11:28 | disposition home or self-care (01) | DRG 807 ==
LOC: MW.OBCHECK 05:25 → MW.OB 05:25 → MW.OBCHECK 07:13 → MW.OB 07:13
PROVIDERS: ADMIT Obstetrics & Gynecology; ATTEND Obstetrics & Gynecology
PROC: 10E0XZZ Delivery of Products of Conception, External Approach (ICD-10-PCS; principal; 2020-05-24)
PROC: 0KQM0ZZ Repair Perineum Muscle, Open Approach (ICD-10-PCS; 2020-05-24)
PROC: 10907ZC Drainage of Amniotic Fluid, Therapeutic from Products of Conception, Via Natural or Artificial Opening (ICD-10-PCS; 2020-05-24)
PROC: 3E0R3BZ Introduction of Anesthetic Agent into Spinal Canal, Percutaneous Approach (ICD-10-PCS; 2020-05-24)
PROC: 00HU33Z Insertion of Infusion Device into Spinal Canal, Percutaneous Approach (ICD-10-PCS; 2020-05-24)
DX: O77.0 Labor and delivery complicated by meconium in amniotic fluid (principal); Z37.0 Single live birth; Z3A.39 39 weeks gestation of pregnancy; O69.81X0 Labor and delivery complicated by cord around neck, without compression, not applicable or unspecified; O70.1 Second degree perineal laceration during delivery; O76 Abnormality in fetal heart rate and rhythm complicating labor and delivery; Z11.59 Encounter for screening for other viral diseases
CPT/HCPCS: 01967; 36415; 51702; 59025; 59409; 82803; 84112; 85014; 85018; 85027; 86592; 86850; 86900; 86901; A9270-GY; J2210; J2590; J2795; J3010; J3490; J7120; U0002

== ENCOUNTER 2021-06-15 13:59 | Emergency (ER) | payer BC, OTHER ==
--- NOTE | 2021-06-15 16:08 | CR ---
Indication: Left foot swelling. Technique: Three views of the left foot. Comparison: None Findings: Os naviculare is present. No fracture or subluxation is identified. The joint spaces are well maintained. Impression: No acute fracture Dictated by Melina Ellis MD @ 06/15/2021 4:06:[address] Melina Ellis @ Jun 15 2021 4:06PM
[2021-06-15] MEDS ORDERED: Ketorolac 60 MG/2 ML SDV IM ONE (16:23)
--- NOTE | 2021-06-15 16:30 | EDM.PDOC ---
ED HPI GENERAL MEDICAL PROBLEM - General Chief Complaint: Lower Extremity Injury/Pain Stated Complaint: lft ankle twisted Time Seen by Provider: 06/15/21 16:17 Source of Information: Reports: Patient History Limitations: Reports: No Limitations - History of Present Illness INITIAL COMMENTS - FREE TEXT/NARRATIVE: HISTORY AND PHYSICAL: History of present illness: The patient is a 35-year-old female who injured her left ankle when she jumped over a dog gate and landed wrong. The patient is unsure just how she turned her ankle but the pain has progressively gotten worse and she is now unable to walk on it due to the pain. She has been taking Tylenol and Motrin at home. Patient denies any fever, chills, headache, change in vision, syncope or near syncope. Denies any chest pain, back pain, shortness of breath or cough. Denies any abdominal pain, nausea, vomiting, diarrhea, constipation or dysuria. Has not noted any blood in urine or stool. Patient has been eating and drinking appropriately. Review of systems: As per history of present illness and below otherwise all systems reviewed and negative. Past medical history: As per history of present illness and as reviewed below otherwise noncontributory. Surgical history: As per history of present illness and as reviewed below otherwise noncontributory. Social history: See social history for further information Family history: As per history of present illness and as reviewed below otherwise noncontributory. Physical exam: General: Well developed and well nourished. Alert and orientated x 3. Nontoxic in appearance and in no acute distress. Vital signs are stable and have been reviewed by me. Nursing notes were reviewed. HEENT: Atraumatic, normocephalic, pupils equal and reactive bilaterally, nega tive for conjunctival pallor or scleral icterus, mucous membranes moist, TMs normal bilaterally, throat clear, neck supple, nontender, trachea midline. No drooling or trismus noted. No meningeal signs. No hot potato voice noted. Lungs: Clear to auscultation bilaterally. No wheezes, rales, or rhonchi. Chest nontender. Normal work of breathing, no accessory muscles used. Heart: S1S2, regular rate and rhythm without overt murmur, gallops, or rubs. No JVD. No peripheral edema Abdomen: Soft, nondistended, nontender. Normoactive bowel sounds. Negative for masses or costovertebral tenderness. Skin: Intact, warm, dry. No lesions or rashes noted. Hematologic: No petechiae or purpra. Mucosa appropriate color and normal nail bed color and refill. Extremities: Left ankle swollen, no obvious deformities. No discoloration. Neurologically intact. moves all other extremities per self without difficulty or deficits, negative for cords or calf pain. Neurovascular unremarkable. Neuro: Awake, alert, oriented. Cranial nerves II through XII unremarkable. Cerebellum unremarkable. Motor and sensory unremarkable throughout. Exam nonfocal. Psychiatric: Mood and affect are appropriate. Normal thought process. Answering questions appropriately. Notes: *This patient was seen and evaluated during the 2019 SARS-CoV-2 novel coronavirus pandemic period. Community viral transmission is ongoing at time of this encounter and the emergency department is operating under pandemic response procedures. Date above the patient is a 35-year-old female who presents to the emergency room with complaints of left ankle pain after tripping over the dog gate earlier. I will treat the patient's pain with Toradol 60 mg IM. I will order an x-ray of her left ankle. The patient is agreeable with this plan. Left foot x-ray Impression: No acute fracture. As this is a foot sprain and the patient is unable to bear weight I have ordered a walking boot for the patient. I have instructed the patient that she will need to follow-up with her orthopedic surgeon. She can take Tylenol and Motrin for pain. The patient is agreeable with this plan. I have talked with the patient about today's findings, in addition to providing specific details for plan of care. Reassessment at the time of disposition demonstrates that the patient is in no acute distress. The patient is stable for discharge, counseling was provided and we discussed in great detail signs and symptoms that would prompt them to return to the Emergency Department. Medication, follow up and supportive care measures were reviewed and discussed. Voices understanding and is agreeable to plan of care. Denies any further questions or concerns at this time. Diagnostics: Left foot x-ray Therapeutics: Left walking boot to stabilize sprain and provide comfort for patient until follow-up with orthopedics. Impression: Left foot sprain Plan: 1. You were evaluated today on an emergent basis. Your left foot pain was evaluated with an x-ray and found to be negative for any fracture. Due to your inability to ambulate I am going to put you in a walking boot and have you follow-up with an orthopedic surgeon. You can take Tylenol or Motrin while breast-feeding. Motrin 400 to 600 mg or 2 to 3 tablets every 6-8 hours will help with the inflammation and pain. 2. You can alternate Tylenol and ibuprofen as needed for pain and fever managem ent. 3. We encourage you to follow up with your primary care provider and/or recommended specialist in the next few days for re-evaluation and further care/management. 4. If your symptoms should worsen, new symptoms develop or any of the signs and symptoms we discussed should arise please return to the emergency room or call 911 (if needed). Definitive disposition and diagnosis as appropriate pending reevaluation and review of above. Left foot Pain Score (Numeric/FACES): 8 - Related Data Allergies Allergy/AdvReac Type Severity Reaction Status Date / Time No Known Allergies Allergy Verified 05/24/20 05:33 Past Medical History - Past Health History Medical/Surgical History: Denies Medical/Surgical History Gastrointestinal History: Reports: GERD Other OCULAR CARE AIDE History: 39 6/7 weeks in active labor Endocrine/Metabolic History: Reports: Obesity/BMI 30+ Social & Family History - Family History Oncologic: Reports: Other (See Below) Other Oncologic Family History: MaternalGrandma: Melanoma. Maternal Grandfather: Skin Cancer - Caffeine Use Caffeine Use: Reports: Coffee Review of Systems - Review of Systems Review Of Systems: Comprehensive ROS is negative, except as noted in HPI. ED EXAM, GENERAL - Physical Exam Exam: See Below (See dictation) Course - Vital Signs Last Recorded V/S: Last Vital Signs Temp 97.8 F 06/15/21 16:20 Pulse 88 06/15/21 17:09 Resp 18 06/15/21 17:09 BP 126/80 06/15/21 17:09 Pulse Ox 98 06/15/21 17:09 - Orders/Labs/Meds Meds: Medications Discontinued Medications Generic Name Dose Route Start Last Admin Trade Name Freq PRN Reason Stop Dose Admin Ketorolac Tromethamine 60 mg 06/15/21 16:23 06/15/21 16:52 Ketorolac 60 Mg/2 Ml Sdv IM 06/15/21 16:24 60 mg ONETIME ONE Administration Departure - Departure Time of Disposition: 16:27 Disposition: Home, Self-Care 01 Condition: Good Clinical Impression: Sprain of foot, left - Discharge Information *PRESCRIPTION DRUG MONITORING PROGRAM REVIEWED*: Not Applicable *COPY OF PRESCRIPTION DRUG MONITORING REPORT IN PATIENT FERN: Not Applicable Instructions: Foot Sprain Referrals: PCP,None [Primary Care Provider] - Forms: ED Department Discharge Additional Instructions: The following information is given to patients seen in the emergency department who are being discharged to home. This information is to outline your options for follow-up care. We provide all patients seen in our emergency department with a follow-up referral. The need for follow-up, as well as the timing and circumstances, are variable depending upon the specifics of your emergency department visit. If you don't have a primary care physician on staff, we will provide you with a referral. We always advise you to contact your personal physician following an emergency department visit to inform them of the circumstance of the visit and for follow-up with them and/or the need for any referrals to a consulting specialist. The emergency department will also refer you to a specialist when appropriate. This referral assures that you have the opportunity for follow-up care with a specialist. All of these measure are taken in an effort to provide you with optimal care, which includes your follow-up. Under all circumstances we always encourage you to contact your private physician who remains a resource for coordinating your care. When calling for follow-up care, please make the office aware that this follow-up is from your recent emergency room visit. If for any reason you are refused follow-up, please contact the [facility] Emergency Department at and asked to speak to the emergency department charge nurse. [facility] [address] [place] [id number] [address] [address] Plan: 1. You were evaluated today on an emergent basis. Your left foot pain was evaluated with an x-ray and found to be negative for any fracture. Due to your inability to communicate I am going to put you in a walking boot and have you follow-up with an orthopedic surgeon. You can take Tylenol or Motrin while breast-feeding. Motrin 400 to 600 mg or 2 to 3 tablets every 6-8 hours will help with the inflammation and pain. 2. You can alternate Tylenol and ibuprofen as needed for pain and fever management. 3. We encourage you to follow up with your primary care provider and/or recommended specialist in the next few days for re-evaluation and further care/management. 4. If your symptoms should worsen, new symptoms develop or any of the signs and symptoms we discussed should arise please return to the emergency room or call 911 (if needed).
== END 2021-06-15 17:09 | disposition home or self-care (01) ==
LOC: MW.ED 13:59
DX: S93.602A Unspecified sprain of left foot, initial encounter (principal); E66.9 Obesity, unspecified; Z68.30 Body mass index [BMI] 30.0-30.9, adult; X50.1XXA Overexertion from prolonged static or awkward postures, initial encounter; Y93.39 Activity, other involving climbing, rappelling and jumping off
CPT/HCPCS: 73630; 96372; 99283; J1885; 99282

== ENCOUNTER 2022-05-09 15:01 | Inpatient (IN) | payer BC ==
[2022-05-09] MEDS ORDERED: Sodium Chloride 0.9% 10 ML Syringe FLUSH PRN (16:05)
[2022-05-09] MEDS ORDERED: Sodium Chloride 0.9% 2.5 ML Syringe FLUSH PRN (16:05)
[2022-05-09] MEDS ORDERED: Morphine 4 MG/ML VIAL IVPUSH ONE ×4 (16:11→19:55)
[2022-05-09] MEDS ORDERED: Lactated Ringers 1,000 ML IV ONE ×2 (16:11→18:38)
[2022-05-09 16:21] LABS: CARBON DIOXIDE,CO2 22.2 mmol/L (21.0-32.0); POTASSIUM,K 3.8 mmol/L (3.5-5.1)
[2022-05-09] MEDS ORDERED: Ertapenem 1 GM in Sodium Chloride 0.9% 50 ML IV ONE (18:33)
[2022-05-09] MEDS ORDERED: Iopamidol 755 MG/ML 500 ML Multipack Bottle IVPUSH STA (18:45)
[2022-05-09] MEDS ORDERED: Morphine 2 MG/ML SYRINGE IVPUSH ONE (19:46)
[2022-05-09] MEDS ORDERED: Propofol 200 MG/20 ML SDV ONE ×3 (20:06→22:31)
[2022-05-09] MEDS ORDERED: fentaNYL 250 MCG/5 ML SDV ONE ×2 (20:06→21:23)
[2022-05-09] MEDS ORDERED: Bupivacaine 0.5% 30 ML SDV ONE (21:01)
[2022-05-09] MEDS ORDERED: Octyl 2-Cyanoacrylate 1 Tube ONE (21:01)
[2022-05-09] MEDS ORDERED: Ketamine 500 mg/10 ML MDV ONE (21:24)
[2022-05-09] MEDS ORDERED: fentaNYL 100 MCG/2 ML SDV ONE (21:41)
[2022-05-09] MEDS ORDERED: HYDROmorphone 2 MG/ML Syringe ONE (22:08)
[2022-05-09] MEDS ORDERED: Ondansetron 4 MG/2 ML SDV ONE (22:27)
[2022-05-09] MEDS ORDERED: Dexamethasone 4 MG/ML 5 ML MDV ONE (22:27)
[2022-05-09] MEDS ORDERED: Glycopyrrolate 0.2 MG/ML SDV ONE (22:27)
[2022-05-09] MEDS ORDERED: Phenylephrine HCl In 0.9% NaCl 1 MG/10 ML Vial ONE (22:27)
[2022-05-09] MEDS ORDERED: Sugammadex Sodium 200 MG/2 ML VIAL ONE (22:27)
[2022-05-09] MEDS ORDERED: Succinylcholine/Sod PF 100 MG/5 ML SYRINGE IV ONE (22:27)
[2022-05-09] MEDS ORDERED: Rocuronium Bromide 50 MG/5 ML Syringe ONE (22:27)
[2022-05-09] MEDS ORDERED: ePHEDrine 50 MG/ML SDV ONE (22:27)
[2022-05-09] MEDS ORDERED: Metoclopramide 10 MG/2 ML SDV IVPUSH PRN (22:47)
[2022-05-09] MEDS ORDERED: Naloxone 0.4 MG/ML SDV IVPUSH PRN (22:47)
[2022-05-09] MEDS ORDERED: fentaNYL 50 MCG/ML SDV IVPUSH ONE (22:47)
[2022-05-09] MEDS ORDERED: Albuterol 0.083% 2.5 MG/3 ML Neb Soln NEB PRN (22:47)
[2022-05-09] MEDS ORDERED: Ondansetron 4 MG/2 ML SDV IVPUSH PRN ×2 (22:47)
[2022-05-09] MEDS ORDERED: HYDROmorphone 1 MG/ML Syringe IVPUSH PRN (22:47)
[2022-05-09] MEDS ORDERED: Acetaminophen 1,000 MG in Premix Bag 1 BAG IV PRN (22:49)
[2022-05-09] MEDS: Piperacillin/Tazobactam 4.5 GM in Sodium Chloride 0.9% 100 ML IV SCH (23:53)
[2022-05-09] MEDS: Lactated Ringers 1,000 ML IV SCH (23:53)
[2022-05-10] MEDS: Piperacillin/Tazobactam 4.5 GM in Sodium Chloride 0.9% 100 ML IV SCH ×3 (06:07→22:31)
[2022-05-10] MEDS: HYDROmorphone 2 MG/ML Syringe IVPUSH PRN ×2 (06:07→20:20)
[2022-05-10] MEDS: Acetaminophen/HYDROcodone 325-5 MG Tab PO PRN ×2 (07:45→13:00)
[2022-05-10] MEDS: Lactated Ringers 1,000 ML IV SCH ×2 (10:11→20:16)
[2022-05-11] MEDS: Piperacillin/Tazobactam 4.5 GM in Sodium Chloride 0.9% 100 ML IV SCH ×2 (06:19→18:10)
[2022-05-11] MEDS ORDERED: Lactated Ringers 1,000 ML IV ONE (09:59)
[2022-05-11] MEDS ORDERED: Meropenem Premix 1 GM in Premix Bag 1 BAG IV SCH (10:00)
[2022-05-11 10:33] LABS: CARBON DIOXIDE,CO2 23.5 mmol/L (21.0-32.0); POTASSIUM,K 3.3 mmol/L (3.5-5.1)
[2022-05-11] MEDS ORDERED: VANCOmycin 1.5 GM/300 ML 1.5 GM in Premix Bag 1 BAG IV SCH (11:00)
[2022-05-11] MEDS: Lactated Ringers 1,000 ML IV SCH ×2 (11:32→20:29)
[2022-05-11] MEDS: Acetaminophen/HYDROcodone 325-5 MG Tab PO PRN (11:32)
[2022-05-11] MEDS ORDERED: Iopamidol 755 MG/ML 500 ML Multipack Bottle IVPUSH STA (11:53)
[2022-05-11] MEDS ORDERED: Piperacillin/Tazobactam 4.5 GM in Sodium Chloride 0.9% 100 ML IV SCH (12:15)
[2022-05-11] MEDS: Azithromycin 500 MG in Sodium Chloride 0.9% 250 ML IV SCH (12:46)
[2022-05-11] MEDS: Acetaminophen 500 MG Tab PO PRN (18:10)
[2022-05-11] MEDS: Heparin Sodium 5,000 Units/ML Vial SUBCUT SCH (20:25)
[2022-05-12] MEDS: Acetaminophen 500 MG Tab PO PRN ×4 (00:16→22:34)
[2022-05-12] MEDS: Piperacillin/Tazobactam 4.5 GM in Sodium Chloride 0.9% 100 ML IV SCH ×4 (00:17→18:07)
[2022-05-12] MEDS: Acetaminophen/HYDROcodone 325-5 MG Tab PO PRN (01:07)
[2022-05-12] MEDS ORDERED: Lactated Ringers 1,000 ML IV ONE (02:47)
[2022-05-12] MEDS: Lactated Ringers 1,000 ML IV SCH ×2 (04:36→13:16)
[2022-05-12 07:23] LABS: CARBON DIOXIDE,CO2 23.9 mmol/L (21.0-32.0); POTASSIUM,K 3.5 mmol/L (3.5-5.1)
[2022-05-12] MEDS: Heparin Sodium 5,000 Units/ML Vial SUBCUT SCH ×2 (07:44→20:46)
[2022-05-12] MEDS ORDERED: Scopolamine 1.5 MG Transdermal Patch ONE (09:56)
[2022-05-12] MEDS: Azithromycin 500 MG in Sodium Chloride 0.9% 250 ML IV SCH (13:13)
[2022-05-12] MEDS: VANCOmycin 1.5 GM/300 ML 1.5 GM in Premix Bag 1 BAG IV SCH (15:17)
[2022-05-12] MEDS: oxyCODONE 5 MG Tab PO PRN ×2 (15:26→22:35)
[2022-05-13] MEDS: Piperacillin/Tazobactam 4.5 GM in Sodium Chloride 0.9% 100 ML IV SCH ×4 (00:37→19:02)
[2022-05-13] MEDS: Lactated Ringers 1,000 ML IV SCH (00:37)
[2022-05-13] MEDS: VANCOmycin 1.5 GM/300 ML 1.5 GM in Premix Bag 1 BAG IV SCH ×2 (03:42→16:37)
[2022-05-13 07:00] LABS: CARBON DIOXIDE,CO2 24.9 mmol/L (21.0-32.0); POTASSIUM,K 3.2 mmol/L (3.5-5.1)
[2022-05-13] MEDS ORDERED: Potassium Chloride 20 MEQ Tab.ER PO ONE (07:49)
[2022-05-13] MEDS: Heparin Sodium 5,000 Units/ML Vial SUBCUT SCH ×2 (08:25→21:04)
[2022-05-13] MEDS: oxyCODONE 5 MG Tab PO PRN ×3 (08:29→21:06)
[2022-05-13] MEDS: Acetaminophen 500 MG Tab PO PRN (08:29)
[2022-05-13] MEDS: Azithromycin 500 MG in Sodium Chloride 0.9% 250 ML IV SCH (15:20)
[2022-05-14] MEDS: Piperacillin/Tazobactam 4.5 GM in Sodium Chloride 0.9% 100 ML IV SCH ×2 (01:56→06:26)
[2022-05-14] MEDS: oxyCODONE 5 MG Tab PO PRN ×2 (02:05→10:12)
[2022-05-14] MEDS: VANCOmycin 1.5 GM/300 ML 1.5 GM in Premix Bag 1 BAG IV SCH (03:03)
[2022-05-14 06:47] LABS: CARBON DIOXIDE,CO2 23.3 mmol/L (21.0-32.0); POTASSIUM,K 3.5 mmol/L (3.5-5.1)
[2022-05-14] MEDS: Heparin Sodium 5,000 Units/ML Vial SUBCUT SCH (08:06)
== END 2022-05-14 13:30 | disposition home or self-care (01) | DRG 233 ==
LOC: MW.ED 15:01 → MW.SDS 19:52 → MW.MS 19:52 → MW.SDS 22:47 → MW.MS 22:47
PROVIDERS: ADMIT Surgery; ATTEND Surgery
PROC: 0DTJ4ZZ Resection of Appendix, Percutaneous Endoscopic Approach (ICD-10-PCS; principal; 2022-05-09)
DX: K35.32 Acute appendicitis with perforation, localized peritonitis, and gangrene, without abscess (principal); A41.9 Sepsis, unspecified organism; J18.9 Pneumonia, unspecified organism; K21.9 Gastro-esophageal reflux disease without esophagitis; Z20.822 Contact with and (suspected) exposure to COVID-19; E66.9 Obesity, unspecified; Z68.31 Body mass index [BMI] 31.0-31.9, adult; Z86.16 Personal history of COVID-19
CPT/HCPCS: 00840; 36415; 71046; 71046-26; 74177; 74177-26; 80048; 80053; 80202; 81001; 83605; 83735; 84703; 85025; 85610; 85730; 86850; 86900; 86901; 87040; 87324; 96361; 96374; 96375; 96376; 99285-25; A9270-GY; J0131; J0330; J0456; J1100; J1170; J1335; J1644; J2185; J2270; J2405; J2543; J2704; J3010; J3370; J3490; J7030; J7050; J7120; Q9967; U0002